=== PATIENT | male | born 1995 | race Caucasian/White ===

== ENCOUNTER 2016-05-29 20:21 | Emergency (ER) | payer OTHER ==
[2016-05-29 20:33] VITALS: BP 125/76
--- NOTE | 2016-05-29 20:51 | UC ---
Laceration HPI - HPI Summary HPI Summary: pt presents with c/o laceration to right distal anterior finger. Pt was opening a metal can and cut finger. Pt's tetanus is UTD. - History Of Current Complaint Chief Complaint: UCLaceration Stated Complaint: FINGER LACERATION Time Seen by Provider: 05/29/16 20:41 Hx Obtained From: Patient Laceration Location: Finger Mechanism Of Injury: Sharp Trauma Onset/Duration: Sudden Onset Severity: Mild Aggravating Factors: Movement Related History: Dominant Hand Right - Allergies/Home Medications Allergies/Adverse Reactions: Allergies Allergy/AdvReac Type Severity Reaction Status Date / Time No Known Allergies Allergy Verified 05/29/16 20:25 Home Medications: Home Medications NK [No Home Medications Reported] 05/29/16 [History Confirmed 05/29/16] PMH/Surg Hx/FS Hx/Imm Hx Previously Healthy: Yes Respiratory History Of: Reports: Asthma - seasonal - Surgical History Surgical History: None - Family History Known Family History: Positive: Other - positive [facility] for laceration - Social History Occupation: Student - at [employer] Alcohol Use: Occasionally Substance Use Type: None Smoking Status (MU): Never Smoked Tobacco - Immunization History Most Recent Tetanus Shot: 2013 Review of Systems Constitutional: Negative Skin: Other - laceration Eyes: Negative ENT: Negative Respiratory: Negative Cardiovascular: Negative Gastrointestinal: Negative Genitourinary: Negative Motor: Negative Neurovascular: Negative Musculoskeletal: Negative Neurological: Negative Psychological: Negative All Other Systems Reviewed And Are Negative: Yes Physical Exam Triage Information Reviewed: Yes Appearance: Well-Appearing Vital Signs: Initial Vital Signs Temp 99.6 F 05/29/16 20:25 Pulse 90 05/29/16 20:25 Resp 18 05/29/16 20:25 BP 125/76 05/29/16 20:25 Pulse Ox 100 05/29/16 20:25 Vital Signs Reviewed: Yes Eye Exam: Normal Respiratory Exam: Normal Cardiovascular Exam: Normal Musculoskeletal Exam: Normal Neurological Exam: Normal Psychological Exam: Normal Skin Exam: Other - laceration to right 3rd distal anterior finger. Bleeding controlled/stopped Laceration Repair - Laceration Repair 1 Description: Linear - Pt tolerated procedure well Laceration Size After Repair: Length (cm) - 1, Width (mm) - 2, Depth (mm) - 2 Modified For Repair: No Cleansing Completed Via Routine Prep: Yes Irrigation With Pressure Irrigation Device: Yes Closure Material: Skin Adhesive Closure Method: Single Layer Suture Of: Skin Laceration Course/Dx - Differential Dx - Laceration/Wound Differental Diagnoses: Laceration Provider Diagnoses: laceration to right 3rd finger. laceration repair with skin adhesinve to right 3rd distal finger. Discharge - Discharge Plan Condition: Stable Disposition: HOME Patient Education Materials: Laceration (ED), Skin Adhesive Care (ED) Referrals: [facility] NENA Suazo [Medical Doctor] -
== END 2016-05-29 21:21 | disposition home or self-care (01) ==
LOC: UCEAST 20:21
DX: S61.212A Laceration without foreign body of right middle finger without damage to nail, initial encounter (principal); W45.8XXA Other foreign body or object entering through skin, initial encounter; Y93.9 Activity, unspecified; Y92.9 Unspecified place or not applicable
CPT/HCPCS: 12001; 99201; G0463